=== PATIENT | male | born 1925 | race Asian ===

== ENCOUNTER 2017-07-30 07:22 | Inpatient (IN) | payer MEDICARE, MEDICAID ==
[~2017-07-30] VITALS: Ht 160 cm; Wt 65.0 kg
[~2017-07-30 07:22] MED LIST: ACET-75 PO; ATOR10TA PO; ATOR10TA70 PO; CHOL200035 PO; CITA20TA11 PO; CITA20TA2 PO; CLOP75TA33 PO; CLOP75TA35 PO; DIL100C PO; ISOS30TA PO; ISOS30TA6 PO; KEP500T PO; LISI-600 PO; LOSA50TA3 PO; METO25TA6 PO; NITR0.4T48 SL; PHEN100C12 PO; QUET25TA PO; QUET50TA PO; TRAZ-143 PO; TRAZ-89 PO
[2017-07-30] MEDS ORDERED: normal saline 1000ml 1,000 ML IV ONE ×2 (08:00→09:25)
[2017-07-30 08:46] LABS: CLARITY,URINE CLEAR (Clear); COLOR,URINE STRAW (Yellow); GLUCOSE, URINE NEGATIVE (Neg); KETONES,URINE 15 mg/dl (Neg); LEUKOCYTE ESTERASE ,URINE NEGATIVE (Neg); NITRITES, URINE NEGATIVE (Neg); OCCULT BLOOD,URINE LARGE (Neg); PH,URINE 6.5 (4.8-8.0); PROTEIN,URINE 100 mg/dl (Neg); UROBILINOGEN,URINE 0.2 E.U/dL (0.2-1.0)
[2017-07-30 08:48] LABS: UA COLLECTION TYPE STRAIGHT CATH
[2017-07-30 08:50] LABS: PARTIAL THROMBOPLASTIN TIME 27 SECONDS (22-32); PROTHROMBIN TIME 10.7 SECONDS (9.0-12.0)
[2017-07-30 08:52] LABS: RENAL CELLS, URINE FEW /HPF; SQUAMOUS EPITHELIAL CELL,UR FEW /LPF (FEW)
[2017-07-30 08:53] LABS: BACTERIA,URINE FEW /HPF (Neg); TRANSITIONAL EPI CELLS,URINE MODERATE /HPF; WBC,URINE 0-4 /HPF (0-4)
[2017-07-30 09:00] LABS: ALANINE AMINOTRANSFERASE 22 U/L (12-78); ALBUMIN 3.9 G/DL (3.4-5.0); ALBUMIN/GLOBULIN RATIO 0.9 (1.1-1.5); ALKALINE PHOSPHATASE 131 IU/L (46-116); ANION GAP 12 (8-16); ASPARTATE AMINO TRANSFERASE 55 U/L (10-37); BILIRUBIN,TOTAL 1.7 MG/DL (0.1-1.0); BLOOD UREA NITROGEN 34 MG/DL (7-18); BUN/CREATININE RATIO 24.1 (5.4-32.0); CALCIUM 9.3 MG/DL (8.5-10.1); CHLORIDE 101 MMOL/L (99-107); CREATININE 1.41 MG/DL (0.60-1.10); GLUCOSE 147 MG/DL (70-104); MAGNESIUM 1.6 MG/DL (1.5-2.4); SODIUM 141 MMOL/L (135-145); TOTAL CARBON DIOXIDE 28.1 MMOL/L (24-32); TOTAL PROTEIN 8.1 G/DL (6.4-8.2); eGFR 47 ML/MIN
[2017-07-30 09:05] LABS: TROPONIN I 0.16 NG/ML (0.0-0.05)
[2017-07-30 09:08] LABS: HEMATOCRIT 35.2 % (42.0-52.0); HEMOGLOBIN 12.4 g/dl (14.0-17.9); MEAN CORPUSCULAR HEMOGLOBIN 33.4 PG (27.0-31.0); MEAN CORPUSCULAR HGB CONC 35.1 % (33.0-36.5); MEAN PLATELET VOLUME 7.8 FL (7.4-10.4); PLATELET COUNT 211 X10'3 (140-440); RED CELL DISTRIBUTION WIDTH 14.2 % (11.5-14.5)
[2017-07-30 09:14] LABS: BASOPHILS % (AUTO) 0.2 % (0-1); EOSINOPHILS % (AUTO) 1.4 % (0-6); LYMPHOCYTES % (AUTO) 9.1 % (21-51); MONOCYTES % (AUTO) 4.6 % (2-12); NEUTROPHILS % (AUTO) 84.7 % (42-75)
[2017-07-30 09:16] LABS: MONOCYTES # (AUTO) 0.5 X10'3 (0-0.9)
[2017-07-30 09:19] LABS: NEUTROPHILS # (AUTO) 9.2 X10'3 (1.8-7.7)
[2017-07-30 09:20] LABS: BASOPHILS # (AUTO) 0.1 X10'3 (0-0.2); EOSINOPHILS # (AUTO) 0.2 X10'3 (0-0.9)
[2017-07-30] MEDS ORDERED: haloperidol 5mg tablet PO ONE ×2 (09:30→12:25)
[2017-07-30] MEDS ORDERED: LORazepam 2 mg/ml vial IV ONE (11:00)
[2017-07-30] MEDS ORDERED: aspirin 325mg tablet PO ONE (12:45)
[2017-07-30] MEDS ORDERED: enoxaparin 100mg/ml syringe SUBCUT ONE (12:50)
[2017-07-30] MEDS ORDERED: morphine 4 MG/ML inj SYRINge IV ONE (12:50)
[2017-07-30] MEDS ORDERED: enoxaparin 60mg/0.6ml syringe SUBCUT ONE (12:50)
[2017-07-30] MEDS ORDERED: cefTRIAXone 1g/NS 100ml IVPB 100 ML IV ONE (13:35)
[2017-07-30] MEDS: piperacillin/tazo 3.375gm/50ml 50 ML IV SCH ×3 (13:57→19:11)
[2017-07-30] MEDS ORDERED: normal saline 1000ML IV soln IVB ONE (14:15)
[2017-07-30] MEDS ORDERED: normal saline 1000ml 1,000 ML IV SCH (16:45)
[2017-07-30] MEDS ORDERED: magnesium hydroxide 30ml (MOM) UD suspension PO PRN (18:20)
[2017-07-30] MEDS ORDERED: acetaminophen 325mg tablet PO PRN (18:20)
[2017-07-30] MEDS ORDERED: ondansetron/PF 4mg/2ml inj IV PRN (18:20)
[2017-07-30] MEDS ORDERED: mag hydrox/Alum hydrox/simeth 30ml oral suspension PO PRN (18:20)
[2017-07-30] MEDS: normal saline 1000ml 1,000 ML IV SCH (19:11)
[2017-07-30 22:10] VITALS: BP 205/87
[2017-07-30] MEDS ORDERED: cloNIDine 0.2 MG/24 HR patch (7 day patch) TD ONE (22:25)
[2017-07-30] MEDS: morphine 2 MG/ML inj. syringe IV PRN ×2 (22:32→22:53)
[2017-07-30 23:00] VITALS: BP 182/71
[2017-07-31] VITALS (7 sets, daily range): BP systolic 138–173; BP diastolic 56–94
[2017-07-31] MEDS: enalaprilat dihydrate 2.5mg/2ml vial IV PRN ×2 (00:19→11:21)
[2017-07-31] MEDS: piperacillin/tazo 3.375gm/50ml 50 ML IV SCH ×4 (02:31→20:42)
[2017-07-31] MEDS: normal saline 1000ml 1,000 ML IV SCH ×2 (04:17→14:17)
[2017-07-31 05:19] LABS: BASOPHILS % (AUTO) 0.3 % (0-1); EOSINOPHILS # (AUTO) 0.2 X10'3 (0-0.9); EOSINOPHILS % (AUTO) 1.7 % (0-6); HEMATOCRIT 35.9 % (42.0-52.0); HEMOGLOBIN 12.6 g/dl (14.0-17.9); LYMPHOCYTES % (AUTO) 16.3 % (21-51); MEAN CORPUSCULAR HEMOGLOBIN 34.1 PG (27.0-31.0); MEAN CORPUSCULAR HGB CONC 34.9 % (33.0-36.5); MEAN CORPUSCULAR VOLUME 97.6 FL (78-98); MEAN PLATELET VOLUME 8.1 FL (7.4-10.4); MONOCYTES # (AUTO) 1.1 X10'3 (0-0.9); NEUTROPHILS # (AUTO) 8.7 X10'3 (1.8-7.7); NEUTROPHILS % (AUTO) 72.7 % (42-75); PLATELET COUNT 204 X10'3 (140-440); RED BLOOD COUNT 3.68 X10'6 (4.70-6.10); RED CELL DISTRIBUTION WIDTH 14.5 % (11.5-14.5)
[2017-07-31 05:37] LABS: ALANINE AMINOTRANSFERASE 23 U/L (12-78); ALBUMIN 3.3 G/DL (3.4-5.0); ALBUMIN/GLOBULIN RATIO 0.9 (1.1-1.5); ALKALINE PHOSPHATASE 100 IU/L (46-116); ANION GAP 12 (8-16); ASPARTATE AMINO TRANSFERASE 65 U/L (10-37); BILIRUBIN,TOTAL 1.8 MG/DL (0.1-1.0); BLOOD UREA NITROGEN 33 MG/DL (7-18); BUN/CREATININE RATIO 21.4 (5.4-32.0); CALCIUM 8.3 MG/DL (8.5-10.1); CHLORIDE 105 MMOL/L (99-107); CREATININE 1.54 MG/DL (0.60-1.10); GLUCOSE 126 MG/DL (70-104); POTASSIUM 3.4 MMOL/L (3.5-5.1); SODIUM 143 MMOL/L (135-145); TOTAL CARBON DIOXIDE 26.4 MMOL/L (24-32); TOTAL PROTEIN 6.9 G/DL (6.4-8.2); eGFR 43 ML/MIN
[2017-07-31] MEDS ORDERED: phenytoin sod ER 100mg capsule PO SCH ×2 (08:00→21:00)
[2017-07-31] MEDS ORDERED: levetiracetam 250mg tablet PO SCH (08:00)
[2017-07-31] MEDS: isosorbide mononitrate 30mg tab.SR.24H PO SCH (08:57)
[2017-07-31] MEDS: CITALOpram 10mg tablet PO SCH (08:58)
[2017-07-31] MEDS: metoprolol tartrate 25mg tablet PO SCH ×2 (08:58→20:00)
[2017-07-31] MEDS: enoxaparin 60mg/0.6ml syringe SUBCUT SCH (08:59)
[2017-07-31] MEDS: LevETIRAcetam 500 MG in NORMAL SALINE 100ml IV.SOLN IV SCH ×2 (11:20→20:42)
[2017-07-31] MEDS: PHENYTOIN SOD IV SCH ×2 (12:40→21:00)
[2017-07-31] MEDS: NORMAL SALINE IV SCH ×2 (12:40→21:00)
[2017-07-31] MEDS: lactobacillus rhamnosus 10,000 MMU CELLS/CAPSULE PO SCH (20:00)
[2017-07-31] MEDS ORDERED: phenytoin sod inj 500 MG in normal saline 100ml IV soln 90 ML IV SCH (21:00)
[2017-07-31] MEDS: QUEtiapine 25mg tablet PO SCH (21:00)
[2017-08-01] MEDS: normal saline 1000ml 1,000 ML IV SCH ×3 (00:17→23:46)
[2017-08-01] MEDS: morphine 2 MG/ML inj. syringe IV PRN (00:47)
[2017-08-01] MEDS: piperacillin/tazo 3.375gm/50ml 50 ML IV SCH ×2 (01:31→08:45)
[2017-08-01 03:00] VITALS: BP 158/58
[2017-08-01 05:17] LABS: BASOPHILS % (AUTO) 0.6 % (0-1); EOSINOPHILS # (AUTO) 0.2 X10'3 (0-0.9); EOSINOPHILS % (AUTO) 2.9 % (0-6); HEMATOCRIT 30.8 % (42.0-52.0); HEMOGLOBIN 10.5 g/dl (14.0-17.9); LYMPHOCYTES # (AUTO) 1.8 X10'3 (1.1-4.8); LYMPHOCYTES % (AUTO) 21.8 % (21-51); MEAN CORPUSCULAR HEMOGLOBIN 33.3 PG (27.0-31.0); MEAN CORPUSCULAR VOLUME 97.8 FL (78-98); MONOCYTES # (AUTO) 0.9 X10'3 (0-0.9); MONOCYTES % (AUTO) 11.1 % (2-12); NEUTROPHILS # (AUTO) 5.1 X10'3 (1.8-7.7); NEUTROPHILS % (AUTO) 63.6 % (42-75); PLATELET COUNT 197 X10'3 (140-440); RED BLOOD COUNT 3.15 X10'6 (4.70-6.10); RED CELL DISTRIBUTION WIDTH 14.4 % (11.5-14.5); WHITE BLOOD COUNT 8.1 X10'3 (4.5-11.0)
[2017-08-01 05:53] LABS: ALANINE AMINOTRANSFERASE 17 U/L (12-78); ALBUMIN 2.8 G/DL (3.4-5.0); ALBUMIN/GLOBULIN RATIO 0.9 (1.1-1.5); ALKALINE PHOSPHATASE 79 IU/L (46-116); ANION GAP 10 (8-16); ASPARTATE AMINO TRANSFERASE 51 U/L (10-37); BILIRUBIN,TOTAL 1.6 MG/DL (0.1-1.0); BLOOD UREA NITROGEN 33 MG/DL (7-18); BUN/CREATININE RATIO 20.6 (5.4-32.0); CALCIUM 7.9 MG/DL (8.5-10.1); CHLORIDE 108 MMOL/L (99-107); GLUCOSE 114 MG/DL (70-104); POTASSIUM 3.2 MMOL/L (3.5-5.1); SODIUM 145 MMOL/L (135-145); TOTAL CARBON DIOXIDE 27.5 MMOL/L (24-32); eGFR 41 ML/MIN
[2017-08-01 06:00] VITALS: BP 152/54
[2017-08-01] MEDS: LevETIRAcetam 500 MG in NORMAL SALINE 100ml IV.SOLN IV SCH ×3 (08:20→21:03)
[2017-08-01] MEDS: metoprolol tartrate 25mg tablet PO SCH ×2 (08:52→20:57)
[2017-08-01] MEDS: isosorbide mononitrate 30mg tab.SR.24H PO SCH (08:53)
[2017-08-01] MEDS: CITALOpram 10mg tablet PO SCH (08:56)
[2017-08-01] MEDS: enoxaparin 60mg/0.6ml syringe SUBCUT SCH (08:58)
[2017-08-01] MEDS: lactobacillus rhamnosus 10,000 MMU CELLS/CAPSULE PO SCH ×2 (08:59→20:57)
[2017-08-01] MEDS: NORMAL SALINE IV SCH ×2 (10:10→23:38)
[2017-08-01] MEDS: PHENYTOIN SOD IV SCH ×2 (10:10→23:38)
[2017-08-01 11:00] VITALS: BP 129/55
[2017-08-01] MEDS ORDERED: potassium Cl 40MEQ/NS 500ml 500 ML IV PRN ×2 (11:15)
[2017-08-01] MEDS ORDERED: magnesium 4gm in 100ml NS 100 ML IV PRN (11:15)
[2017-08-01] MEDS ORDERED: magnesium 2GM in 50ml NS 50 ML IV PRN (11:15)
[2017-08-01] MEDS ORDERED: magnesium Cl slow-release 64mg tablet PO PRN (11:15)
[2017-08-01] MEDS ORDERED: potassium Cl 20 mEq SR tablet PO PRN ×2 (11:15)
[2017-08-01 15:00] VITALS: BP 145/64
[2017-08-01 19:00] VITALS: BP 134/74
[2017-08-01] MEDS: QUEtiapine 25mg tablet PO SCH (20:58)
[2017-08-01 23:00] VITALS: BP 138/63
[2017-08-02] MEDS: morphine 2 MG/ML inj. syringe IV PRN ×5 (00:52→20:20)
[2017-08-02 03:00] VITALS: BP 153/49
[2017-08-02 05:40] LABS: BASOPHILS % (AUTO) 0.5 % (0-1); EOSINOPHILS # (AUTO) 0.4 X10'3 (0-0.9); EOSINOPHILS % (AUTO) 4.6 % (0-6); HEMOGLOBIN 10.9 g/dl (14.0-17.9); LYMPHOCYTES # (AUTO) 1.8 X10'3 (1.1-4.8); LYMPHOCYTES % (AUTO) 19.2 % (21-51); MEAN CORPUSCULAR HEMOGLOBIN 33.7 PG (27.0-31.0); MEAN CORPUSCULAR HGB CONC 34.2 % (33.0-36.5); MEAN CORPUSCULAR VOLUME 98.5 FL (78-98); MEAN PLATELET VOLUME 8.4 FL (7.4-10.4); MONOCYTES # (AUTO) 0.9 X10'3 (0-0.9); MONOCYTES % (AUTO) 10.1 % (2-12); NEUTROPHILS # (AUTO) 6.2 X10'3 (1.8-7.7); NEUTROPHILS % (AUTO) 65.6 % (42-75); PLATELET COUNT 202 X10'3 (140-440); RED BLOOD COUNT 3.25 X10'6 (4.70-6.10); RED CELL DISTRIBUTION WIDTH 14.4 % (11.5-14.5); WHITE BLOOD COUNT 9.4 X10'3 (4.5-11.0)
[2017-08-02 05:49] LABS: ALANINE AMINOTRANSFERASE 14 U/L (12-78); ALBUMIN 2.9 G/DL (3.4-5.0); ALBUMIN/GLOBULIN RATIO 0.8 (1.1-1.5); ALKALINE PHOSPHATASE 85 IU/L (46-116); ANION GAP 11 (8-16); ASPARTATE AMINO TRANSFERASE 45 U/L (10-37); BLOOD UREA NITROGEN 27 MG/DL (7-18); BUN/CREATININE RATIO 21.8 (5.4-32.0); CALCIUM 8.3 MG/DL (8.5-10.1); CHLORIDE 113 MMOL/L (99-107); CREATININE 1.24 MG/DL (0.60-1.10); GLUCOSE 135 MG/DL (70-104); POTASSIUM 3.7 MMOL/L (3.5-5.1); SODIUM 148 MMOL/L (135-145); TOTAL CARBON DIOXIDE 24.2 MMOL/L (24-32); TOTAL PROTEIN 6.5 G/DL (6.4-8.2); eGFR 55 ML/MIN
[2017-08-02] MEDS: enalaprilat dihydrate 2.5mg/2ml vial IV PRN (05:56)
[2017-08-02 06:00] VITALS: BP 213/89
[2017-08-02] MEDS: normal saline 1000ml 1,000 ML IV SCH ×2 (07:00→17:40)
[2017-08-02] MEDS: LevETIRAcetam 500 MG in NORMAL SALINE 100ml IV.SOLN IV SCH ×2 (07:11→20:16)
[2017-08-02] MEDS: metoprolol tartrate 25mg tablet PO SCH ×2 (07:11→20:18)
[2017-08-02] MEDS: lactobacillus rhamnosus 10,000 MMU CELLS/CAPSULE PO SCH ×2 (07:25→20:00)
[2017-08-02] MEDS: CITALOpram 10mg tablet PO SCH (07:25)
[2017-08-02] MEDS: isosorbide mononitrate 30mg tab.SR.24H PO SCH (07:25)
[2017-08-02] MEDS: enoxaparin 60mg/0.6ml syringe SUBCUT SCH (07:25)
[2017-08-02] MEDS ORDERED: OLANZapine 2.5MG tablet PO PRN (07:45)
[2017-08-02] MEDS ORDERED: OLANZapine **IM** 10 mg inj. IM ONE (08:40)
[2017-08-02] MEDS: NORMAL SALINE IV SCH ×2 (09:17→23:19)
[2017-08-02] MEDS: PHENYTOIN SOD IV SCH ×2 (09:17→23:19)
[2017-08-02 11:00] VITALS: BP 164/67
[2017-08-02 15:00] VITALS: BP 186/79
[2017-08-02] MEDS: hydrALAZINE 20mg/ml inj. IV PRN (16:28)
[2017-08-02 19:00] VITALS: BP 119/56
[2017-08-02] MEDS: QUEtiapine 25mg tablet PO SCH (20:19)
[2017-08-02 23:00] VITALS: BP 176/61
[2017-08-03 03:00] VITALS: BP 145/59
[2017-08-03 06:00] VITALS: BP 145/77
[2017-08-03 06:36] LABS: BASOPHILS # (AUTO) 0.1 X10'3 (0-0.2); BASOPHILS % (AUTO) 0.5 % (0-1); EOSINOPHILS # (AUTO) 0.3 X10'3 (0-0.9); EOSINOPHILS % (AUTO) 2.8 % (0-6); HEMATOCRIT 36.4 % (42.0-52.0); HEMOGLOBIN 12.5 g/dl (14.0-17.9); LYMPHOCYTES # (AUTO) 1.9 X10'3 (1.1-4.8); MEAN CORPUSCULAR HGB CONC 34.3 % (33.0-36.5); MEAN CORPUSCULAR VOLUME 99.1 FL (78-98); MEAN PLATELET VOLUME 8.5 FL (7.4-10.4); MONOCYTES # (AUTO) 0.9 X10'3 (0-0.9); MONOCYTES % (AUTO) 8.8 % (2-12); NEUTROPHILS % (AUTO) 68.9 % (42-75); PLATELET COUNT 222 X10'3 (140-440); RED BLOOD COUNT 3.67 X10'6 (4.70-6.10); RED CELL DISTRIBUTION WIDTH 14.6 % (11.5-14.5); WHITE BLOOD COUNT 10.1 X10'3 (4.5-11.0)
[2017-08-03 06:41] LABS: ALANINE AMINOTRANSFERASE 18 U/L (12-78); ALBUMIN/GLOBULIN RATIO 0.8 (1.1-1.5); ALKALINE PHOSPHATASE 98 IU/L (46-116); ANION GAP 12 (8-16); ASPARTATE AMINO TRANSFERASE 31 U/L (10-37); BILIRUBIN,TOTAL 1.4 MG/DL (0.1-1.0); BLOOD UREA NITROGEN 16 MG/DL (7-18); BUN/CREATININE RATIO 14.8 (5.4-32.0); CALCIUM 8.3 MG/DL (8.5-10.1); CHLORIDE 106 MMOL/L (99-107); CREATININE 1.08 MG/DL (0.60-1.10); GLUCOSE 127 MG/DL (70-104); MAGNESIUM 1.9 MG/DL (1.5-2.4); POTASSIUM 3.3 MMOL/L (3.5-5.1); SODIUM 144 MMOL/L (135-145); TOTAL CARBON DIOXIDE 25.8 MMOL/L (24-32); TOTAL PROTEIN 6.9 G/DL (6.4-8.2); eGFR 64 ML/MIN
[2017-08-03] MEDS: LevETIRAcetam 500 MG in NORMAL SALINE 100ml IV.SOLN IV SCH ×2 (08:00→20:27)
[2017-08-03] MEDS: NORMAL SALINE IV SCH ×2 (08:00→21:58)
[2017-08-03] MEDS: PHENYTOIN SOD IV SCH ×2 (08:00→21:58)
[2017-08-03] MEDS ORDERED: OLANZapine 2.5MG tablet PO PRN (08:25)
[2017-08-03] MEDS ORDERED: morphine 10mg/0.5ml (conc. morphine) oral syringe PO PRN (08:25)
[2017-08-03] MEDS: hydrALAZINE 20mg/ml inj. IV PRN (10:48)
[2017-08-03] MEDS: isosorbide mononitrate 30mg tab.SR.24H PO SCH (10:54)
[2017-08-03] MEDS: lactobacillus rhamnosus 10,000 MMU CELLS/CAPSULE PO SCH ×2 (10:54→20:27)
[2017-08-03] MEDS: metoprolol tartrate 25mg tablet PO SCH ×2 (10:55→20:27)
[2017-08-03] MEDS: enoxaparin 60mg/0.6ml syringe SUBCUT SCH (10:58)
[2017-08-03] MEDS: CITALOpram 10mg tablet PO SCH (10:58)
[2017-08-03 11:00] VITALS: BP 177/47
[2017-08-03] MEDS: normal saline 1000ml 1,000 ML IV SCH ×3 (11:03→22:17)
[2017-08-03] MEDS: morphine 2 MG/ML inj. syringe IV PRN (13:16)
[2017-08-03 15:00] VITALS: BP 124/89
[2017-08-03 19:00] VITALS: BP 177/67
[2017-08-03] MEDS: QUEtiapine 25mg tablet PO SCH (20:27)
[2017-08-03] MEDS: morphine 10mg/0.5ml (conc. morphine) oral syringe PO PRN (22:29)
[2017-08-03 23:00] VITALS: BP 148/61
[2017-08-04 03:00] VITALS: BP 170/68
[2017-08-04] MEDS: morphine 10mg/0.5ml (conc. morphine) oral syringe PO PRN (05:55)
[2017-08-04 06:00] VITALS: BP 187/54
[2017-08-04 07:30] LABS: BASOPHILS % (AUTO) 0.2 % (0-1); EOSINOPHILS # (AUTO) 0.4 X10'3 (0-0.9); EOSINOPHILS % (AUTO) 4.1 % (0-6); HEMATOCRIT 38.7 % (42.0-52.0); HEMOGLOBIN 13.3 g/dl (14.0-17.9); LYMPHOCYTES # (AUTO) 1.3 X10'3 (1.1-4.8); LYMPHOCYTES % (AUTO) 12.7 % (21-51); MEAN CORPUSCULAR HEMOGLOBIN 33.7 PG (27.0-31.0); MEAN CORPUSCULAR HGB CONC 34.5 % (33.0-36.5); MEAN CORPUSCULAR VOLUME 97.8 FL (78-98); MEAN PLATELET VOLUME 8.3 FL (7.4-10.4); MONOCYTES # (AUTO) 0.8 X10'3 (0-0.9); MONOCYTES % (AUTO) 7.9 % (2-12); NEUTROPHILS # (AUTO) 7.8 X10'3 (1.8-7.7); NEUTROPHILS % (AUTO) 75.1 % (42-75); PLATELET COUNT 237 X10'3 (140-440); RED BLOOD COUNT 3.96 X10'6 (4.70-6.10); RED CELL DISTRIBUTION WIDTH 14.4 % (11.5-14.5); WHITE BLOOD COUNT 10.4 X10'3 (4.5-11.0)
[2017-08-04 07:57] LABS: ALANINE AMINOTRANSFERASE 17 U/L (12-78); ALBUMIN 2.8 G/DL (3.4-5.0); ALBUMIN/GLOBULIN RATIO 0.8 (1.1-1.5); ALKALINE PHOSPHATASE 99 IU/L (46-116); ANION GAP 14 (8-16); ASPARTATE AMINO TRANSFERASE 23 U/L (10-37); BILIRUBIN,TOTAL 1.2 MG/DL (0.1-1.0); BLOOD UREA NITROGEN 17 MG/DL (7-18); BUN/CREATININE RATIO 15.9 (5.4-32.0); CALCIUM 8.2 MG/DL (8.5-10.1); CHLORIDE 105 MMOL/L (99-107); CREATININE 1.07 MG/DL (0.60-1.10); GLUCOSE 154 MG/DL (70-104); MAGNESIUM 1.8 MG/DL (1.5-2.4); SODIUM 144 MMOL/L (135-145); TOTAL PROTEIN 6.5 G/DL (6.4-8.2); eGFR 65 ML/MIN
[2017-08-04] MEDS: PHENYTOIN SOD IV SCH ×2 (08:00→19:46)
[2017-08-04] MEDS: NORMAL SALINE IV SCH ×2 (08:00→19:46)
[2017-08-04] MEDS: LevETIRAcetam 500 MG in NORMAL SALINE 100ml IV.SOLN IV SCH ×2 (08:00→19:46)
[2017-08-04] MEDS: normal saline 1000ml 1,000 ML IV SCH ×2 (08:17→18:17)
[2017-08-04] MEDS: isosorbide mononitrate 30mg tab.SR.24H PO SCH (09:57)
[2017-08-04] MEDS: lactobacillus rhamnosus 10,000 MMU CELLS/CAPSULE PO SCH ×2 (09:57→21:04)
[2017-08-04] MEDS: metoprolol tartrate 25mg tablet PO SCH ×2 (09:57→21:04)
[2017-08-04] MEDS: CITALOpram 10mg tablet PO SCH (09:57)
[2017-08-04] MEDS: enoxaparin 60mg/0.6ml syringe SUBCUT SCH (09:58)
[2017-08-04 11:00] VITALS: BP 141/62
[2017-08-04] MEDS ORDERED: potassium Cl 20 mEq SR tablet PO PRN ×2 (13:40)
[2017-08-04] MEDS ORDERED: potassium Cl 40MEQ/NS 500ml 500 ML IV PRN ×2 (13:40)
[2017-08-04] MEDS: LACTOSE-FREE FOOD (BOOST BREEZE) 237ML PO SCH ×2 (14:42→18:51)
[2017-08-04 15:00] VITALS: BP 114/69
[2017-08-04 19:00] VITALS: BP 169/78
[2017-08-04] MEDS: QUEtiapine 25mg tablet PO SCH (21:04)
[2017-08-04 23:00] VITALS: BP 123/75
[2017-08-05 03:00] VITALS: BP 203/91
[2017-08-05] MEDS: normal saline 1000ml 1,000 ML IV SCH (04:17)
[2017-08-05 06:00] VITALS: BP 217/69
[2017-08-05 07:26] LABS: MAGNESIUM 1.8 MG/DL (1.5-2.4); POTASSIUM 3.4 MMOL/L (3.5-5.1)
[2017-08-05] MEDS: cloNIDine 0.1 mg tablet PO SCH ×3 (07:56→20:18)
[2017-08-05] MEDS: metoprolol tartrate 25mg tablet PO SCH ×2 (07:56→20:17)
[2017-08-05] MEDS: isosorbide mononitrate 30mg tab.SR.24H PO SCH (07:58)
[2017-08-05] MEDS: CITALOpram 10mg tablet PO SCH (07:58)
[2017-08-05] MEDS: lactobacillus rhamnosus 10,000 MMU CELLS/CAPSULE PO SCH ×2 (07:58→20:00)
[2017-08-05] MEDS: enoxaparin 60mg/0.6ml syringe SUBCUT SCH (08:00)
[2017-08-05] MEDS: LACTOSE-FREE FOOD (BOOST BREEZE) 237ML PO SCH ×3 (08:00→18:40)
[2017-08-05 11:00] VITALS: BP 188/53
[2017-08-05 15:00] VITALS: BP 166/48
[2017-08-05 18:00] VITALS: BP 199/66
[2017-08-05] MEDS: levetiracetam 250mg tablet PO SCH (20:17)
[2017-08-05] MEDS: QUEtiapine 25mg tablet PO SCH (20:17)
[2017-08-05] MEDS ORDERED: phenytoin sod ER 100mg capsule PO SCH (21:00)
[2017-08-05 22:00] VITALS: BP 130/46
[2017-08-06 02:00] VITALS: BP 177/42
[2017-08-06 05:33] LABS: MAGNESIUM 1.8 MG/DL (1.5-2.4); POTASSIUM 3.4 MMOL/L (3.5-5.1)
[2017-08-06 07:00] VITALS: BP 146/69
[2017-08-06] MEDS ORDERED: phenytoin sod ER 100mg capsule PO SCH (08:00)
[2017-08-06] MEDS: lactobacillus rhamnosus 10,000 MMU CELLS/CAPSULE PO SCH (09:04)
[2017-08-06] MEDS: LACTOSE-FREE FOOD (BOOST BREEZE) 237ML PO SCH ×2 (09:04→13:57)
[2017-08-06] MEDS: levetiracetam 250mg tablet PO SCH (09:04)
[2017-08-06] MEDS: metoprolol tartrate 25mg tablet PO SCH (09:05)
[2017-08-06] MEDS: CITALOpram 10mg tablet PO SCH (09:05)
[2017-08-06] MEDS: isosorbide mononitrate 30mg tab.SR.24H PO SCH (09:05)
[2017-08-06] MEDS: cloNIDine 0.1 mg tablet PO SCH ×2 (09:05→13:57)
[2017-08-06] MEDS: enoxaparin 60mg/0.6ml syringe SUBCUT SCH (09:07)
[2017-08-06 11:00] VITALS: BP 108/61
[2017-08-06 15:00] VITALS: BP 194/77
== END 2017-08-06 19:27 | disposition home health service (06) | DRG 871 ==
LOC: ER 07:22 → ED HOLD 18:17 → EDBEDREQ 21:26 → PCU 3S 22:16
PROVIDERS: ADMIT Internal Medicine; ATTEND Internal Medicine
DX: A41.9 Sepsis, unspecified organism (principal); G93.41 Metabolic encephalopathy; E87.2 Acidosis; F02.81 Dementia in other diseases classified elsewhere, unspecified severity, with behavioral disturbance; G30.1 Alzheimer's disease with late onset; G40.909 Epilepsy, unspecified, not intractable, without status epilepticus; Z78.1 Physical restraint status; R19.7 Diarrhea, unspecified; R31.9 Hematuria, unspecified; F41.9 Anxiety disorder, unspecified; M10.9 Gout, unspecified; F32.9 Major depressive disorder, single episode, unspecified; I10 Essential (primary) hypertension; Z51.5 Encounter for palliative care; Z91.040 Latex allergy status; Z91.013 Allergy to seafood; Z86.73 Personal history of transient ischemic attack (TIA), and cerebral infarction without residual deficits
CPT/HCPCS: 36415; 71045; 74176; 76700; 80053; 80185; 81001; 83605; 83735; 84132; 84145; 84484; 85025; 85610; 85730; 87040; 87045; 87046; 87070; 87077; 87185; 87502; 87503; 89055; 93005; 96361; 96365; 96372; 96375; 97110; 97116; 97161; 97530; 99285; A4310; A4315; A4344; A6250; J0360; J0696; J1165; J1650; J1953; J2060; J2270; J2543; J3480; J7030